=== PATIENT | female | born 1995 | race African-American/Black ===

== ENCOUNTER 2019-04-11 18:21 | Emergency (ER) | payer OTHER ==
[2019-04-11 18:47] VITALS: BP 127/83; PULSE 104; TEMP 99.7
--- NOTE | 2019-04-11 18:49 | PDOC ---
History of Present Illness - General Chief Complaint: Cold Symptoms Stated Complaint: FEVER Time Seen by Provider: 04/11/19 18:40 History Source: Patient Exam Limitations: No Limitations - History of Present Illness Initial Comments: 04/11/19 patient came with evaluation of 2-3 days of chills and fevers, sore throat pain and runny nose. States has a moist cough. 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 Timing/Duration: reports: getting worse, intermittent Severity: reports: mild Associated Symptoms: reports: cough, earache, fever/chills, nasal congestion, nasal drainage, shortness of breath Past History - Travel Traveled outside of the country in the last 30 days: No Close contact w/someone who was outside of country & ill: No - Past Medical History Allergies/Adverse Reactions: Allergies Allergy/AdvReac Type Severity Reaction Status Date / Time No Known Allergies Allergy Verified 04/11/19 18:37 - Suicide/Smoking/Psychosocial Hx Smoking History: Never smoked Have you smoked in the past 12 months: No Information on smoking cessation initiated: No Hx Alcohol Use: No Drug/Substance Use Hx: No Review of Systems - Review of Systems Able to Perform ROS?: Yes Is the patient limited Sami proficient: Yes Constitutional: Yes: Symptoms Reported, See HPI, Fever, Malaise HEENTM: Yes: Symptoms Reported, See HPI, Ear Pain, Nose Congestion Respiratory: Yes: Symptoms reported, See HPI, Cough ABD/GI: No: Symptoms Reported Integumentary: Yes: Symptoms Reported, See HPI All Other Systems: Reviewed and Negative *Physical Exam - Vital Signs Last Vital Signs Temp Pulse Resp BP Pulse Ox 99.7 F H 104 H 20 127/83 99 04/11/19 18:34 04/11/19 18:34 04/11/19 18:34 04/11/19 18:34 04/11/19 18:34 - Physical Exam General Appearance: Yes: Nourished, Appropriately Dressed HEENT: positive: SHAYNA, TMs Normal (ingested but landmarks easily visualized), Pharynx Normal, Nasal Congestion, Rhinorrhea Neck: positive: Supple Respiratory/Chest: positive: Lungs Clear, Normal Breath Sounds. 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 intact, Fully Oriented, Normal Mood/Affect *DC/Admit/Observation/Transfer Diagnosis at time of Disposition: URI (upper respiratory infection) Qualifiers: URI type: unspecified URI Qualified Code(s): J06.9 - Acute upper respiratory infection, unspecified - Discharge Dispostion Disposition: HOME Condition at time of disposition: Stable Decision to Admit order: No - Referrals - Patient Instructions Printed Discharge Instructions: DI for Viral Upper Respiratory Infection -- Adult Additional Instructions: Rest, drink lots of fluids: Teas, water, soups, Pedialyte Saltwater gargles Steamy showers/seem to face break up mucus Avoid contact with others until fevers and cough resolved Lots of handwashing and good hygiene Continue [id number] medications for symptomatic relief Tylenol or Motrin for fever and pain Followup with private physician in one to 2 days as needed Return to emergency department for worsened symptoms, fevers, dehydration - Post Discharge Activity Forms/Work/School Notes: Back to Work
== END 2019-04-11 20:15 | disposition home or self-care (01) ==
LOC: JERFT 18:21
DX: J06.9 Acute upper respiratory infection, unspecified (principal)
CPT/HCPCS: 99281-25